=== PATIENT | female | born 1975 | race Caucasian/White ===

== ENCOUNTER 2017-11-17 22:43 | Emergency (ER) | payer BC ==
[~2017-11-17] VITALS: Ht 160 cm; Wt 89.0 kg
[2017-11-17] MEDS ORDERED: ESTARYLLA1 EACH PO ×2 (23:00)
[2017-11-17] MEDS ORDERED: IMITREX100 MG PO ×2 (23:01)
[2017-11-19] MEDS ORDERED: IBU800 MG PO ×2 (13:34)
[2017-11-19] MEDS ORDERED: NORCO 5-325 TA1 EACH PO ×2 (13:34)
== END 2017-11-18 01:40 | disposition home or self-care (01) ==
LOC: ED 22:43
DX: N93.9 Abnormal uterine and vaginal bleeding, unspecified (principal); Z91.018 Allergy to other foods; Z88.8 Allergy status to other drugs, medicaments and biological substances; Z79.899 Other long term (current) drug therapy
CPT/HCPCS: 76830; 76856; 80053; 84703; 85025; 85610; 85730; 99284

== ENCOUNTER 2017-11-19 09:45 | Day surgery (SDC) | payer BC ==
[~2017-11-19] VITALS: Ht 160 cm; Wt 88.9 kg
--- NOTE | ~2017-11-19 | EKG ---
[facility] [address] [facility] [place], [place] [address] Draft EK completed, results pending confirmation PATIENT NAME: KENNA KHAN Electrocardiogram DATE OF : 75 PHYSICIAN: PRELIMINARY REPORT #: [id number] REPORT IS CONFIDENTIAL AND NOT TO BE RELEASED WITHOUT AUTHORIZATION
[~2017-11-19 09:45] MED LIST: ESTARYLLA1 EACH PO; IMITREX100 MG PO
--- NOTE | 2017-11-19 13:09 | NUR ---
11/19/17 1309 Mary Jane Jasmine 1258- PT ARRIVES TO PACU UNRESPONSIVE TO PAINFUL STIMULI. PT IS ABLE TO MAINTAIN HER OWN AIRWAY. OXYGEN SAT 100% ON 6L VIA MASK. 1303- PT OPENS EYES. DOES NOT FOLLOW COMMANDS. EDUCATED PT THAT SHE IS IN THE RECOVERY ROOM. 1305- OXYGEN TITRATED DOWN TO 2L VIA NC. OXYGEN SAT HIGH 90'S TO 100% ON 2L.
[2017-11-19] MEDS ORDERED: IBU800 MG PO ×2 (13:34)
[2017-11-19] MEDS ORDERED: NORCO 5-325 TA1 EACH PO ×2 (13:34)
--- NOTE | 2017-11-20 10:22 | OR ---
[facility] [address] [address] Signed DATE OF OPERATION: 11/19/2017 SURGEON: Ernesto Carroll MD Patient of Dr. Carroll. PREOPERATIVE DIAGNOSIS: Abnormal uterine bleeding. POSTOPERATIVE DIAGNOSIS: Abnormal uterine bleeding. PROCEDURE: Hysteroscopy with biopsy. ANESTHESIA: MAC. ESTIMATED BLOOD LOSS: 20 mL. SPECIMEN: Uterine curettings. DRAINS: None. FINDINGS: Vagina, slight blood. Cervix, thick, closed. No active bleeding. Uterine cavity is normal. Uterus normal in size and shape by palpation. Uterine cavity sounded to 7 cm. The uterine cavity was normal in appearance with small amount of irregular appearing tissue mostly in the fundus. No polyps or fibroids or other masses or lesions seen. DESCRIPTION OF THE PROCEDURE: The patient was brought to the operating room, placed supine position. After adequate MAC was obtained, the patient was placed in dorsal lithotomy position. The patient was prepped and draped in usual sterile fashion. A weighted speculum was placed in the vagina and the anterior lip of the cervix grasped with an Allis clamp. Uterine cavity was sounded to 7 cm. Hysteroscope was then placed in the external os and slowly admitted through the cervix into the uterine cavity using the sterile saline fluid Electronically Signed By: ERNESTO CARROLL MD 11/20/17 1022 PATIENT NAME: KENNA KHAN OPERATIVE REPORT DATE OF : 75 REPORT #: [id number] PHYSICIAN: ERNESTO CARROLL MD PCP: LINAD ESPINOZA MD REPORT IS CONFIDENTIAL AND NOT TO BE RELEASED WITHOUT AUTHORIZATION [facility] [address] [place], [place] [address] Signed distending medium to help dilate the cervix. Upon entering the uterine cavity, the cavity was carefully examined. The MyoSure Lite biopsy probe was then inserted through the hysteroscope and the uterine lining was removed under direct visualization done in 360-degree fashion including the upper portion of the uterus, the lower portion in both cornua. Care was taken to stay in the uterine cavity, but to get a good sample of all areas. This was continued until no irregular tissue was seen and normal cavity with both ostia could be visualized easily. At this point, the hysteroscope was removed. The cervix and the Allis clamp removed. The cervix observed and noted to have good hemostasis. The Aquilex fluid management showed 3300 mL normal saline input with fluid loss of 745 mL, but there was approximately 400 mL under the drape and on the floor, so estimated fluid deficit of 345 mL was used. All instruments were removed from the vagina. The patient tolerated the procedure well, went to recovery room in good condition. The sponge and instrument count correct at the end of the procedure. Uterine curettings were sent to Pathology for identification. MD REMIGIO Luis/TIO /[id number] cc: Linda Espinoza MD Copies: LINDA ESPINOZA MD ~ Electronically Signed By: ERNESTO CARROLL MD 11/20/17 1022 PATIENT NAME: KENNA KHAN OPERATIVE REPORT DATE OF : 75 REPORT #: [id number] PHYSICIAN: ERNESTO CARROLL MD PCP: LINDA ESPINOZA MD REPORT IS CONFIDENTIAL AND NOT TO BE RELEASED WITHOUT AUTHORIZATION
== END 2017-11-19 14:42 | disposition home or self-care (01) ==
LOC: DS 09:45 → OPS 09:45 → DS 13:45 → OPS 13:45
PROVIDERS: General Practice
PROC: 0UB98ZX Excision of Uterus, Via Natural or Artificial Opening Endoscopic, Diagnostic (ICD-10-PCS; principal; 2017-11-19 13:45)
DX: N93.9 Abnormal uterine and vaginal bleeding, unspecified (principal); J45.909 Unspecified asthma, uncomplicated; G43.909 Migraine, unspecified, not intractable, without status migrainosus; E66.9 Obesity, unspecified; Z88.8 Allergy status to other drugs, medicaments and biological substances; Z79.899 Other long term (current) drug therapy; Z68.34 Body mass index [BMI] 34.0-34.9, adult
CPT/HCPCS: 00952; 93005; 93010; J1100; J1885; J2250; J2405; J2704; J3010; J7120

== ENCOUNTER 2020-03-15 06:30 | Day surgery (SDC) | payer OTHER ==
[~2020-03-15] VITALS: Ht 160 cm; Wt 102.0 kg
--- NOTE | ~2020-03-15 | OR ---
[facility] [address] [place] [id number] Draft DATE OF OPERATION: 03/15/2020 SURGEON: Rolando Og DO PREOPERATIVE DIAGNOSES: 1. Abnormal uterine bleeding. 2. Pelvic organ prolapse. POSTOPERATIVE DIAGNOSES: 1. Abnormal uterine bleeding. 2. Pelvic organ prolapse. PROCEDURES PERFORMED: 1. Total laparoscopic hysterectomy. 2. Right fimbriectomy. 3. Cystoscopy. 4. Posterior repair. ASSISTANTS: 1. Ernesto Carroll MD. 2. Mary Montanez DO. ANESTHESIA: General. ESTIMATED BLOOD LOSS: 400 mL. SPECIMEN: Uterus, right fimbria, and cervix. PACKING: Kerlix with Premarin. FINDINGS: Normal uterus and ovaries with left ovary with scarring to the ovarian fossa. Absent left tube and fimbria. Right fimbria present and was excised. On cystoscopy, normal bladder dome and right ureteral efflux noted. No efflux noted from the left ureter consistent with her history of left nephrectomy. Significant bowing of the perineal body and posterior compartment. Excellent apical support. Minimal descensus of the PATIENT NAME: KENNA KHAN OPERATIVE REPORT DATE OF : 75 REPORT #: [id number] PHYSICIAN: ROLANDO OG DO PCP: BOBBI ESPINOZA MD REPORT IS CONFIDENTIAL AND NOT TO BE RELEASED WITHOUT AUTHORIZATION [facility] [address] [place] [id number] Draft anterior compartment. At the end the procedure, excellent perineal and posterior support. Vagina packed with Kerlix with Premarin at the end of the case. COMPLICATIONS: None. INDICATIONS: Ms. Khan is a very pleasant 45-year-old female with abnormal uterine bleeding and pelvic organ prolapse with symptomatic rectocele. She initially presented to the emergency in November of 2019 with acute pain and underwent diagnostic laparoscopy. Followup in the office revealed irregular painful periods and ultrasound demonstrated heterogeneous myometrium suggestive of adenomyosis. She also had significant pelvic organ prolapse with splinting required during stooling. She requests definitive therapy with total laparoscopic hysterectomy, bilateral salpingectomy, and additional pelvic organ prolapse repair as required. Interestingly, the patient recently donated a kidney to her father and is status post left nephrectomy. TECHNIQUE: The patient was taken to the operating room where a time-out was performed to confirm correct patient and correct procedure. General anesthesia was adequately established. The patient was then prepped and draped, prepped and draped in the dorsal lithotomy position with feet in Yellofin stirrups. ICPs were on and running. She received Ancef 2 g preoperatively and heparin per preemie score. A Mayfield catheter was inserted and a weighted speculum was placed in the vagina. The anterior lip of the cervix was grasped with an Allis clamp and the cervix was serially dilated using Hegar dilators. A VCare uterine manipulator was placed without difficulty. The surgeon's gloves were changed and attention was turned to the umbilicus. The base of the umbilicus was infiltrated with 0.25% Marcaine with epinephrine. A vertical infraumbilical incision was made using an 11 blade. The fascia was then grasped with hemostats, elevated and entered sharply with Metzenbaum scissors. Stay sutures were placed on the anterior and posterior edges of the fascial incision. Peritoneum was then entered bluntly and no adhesions palpated. A Willie port was then placed without difficulty and pneumoperitoneum was easily established with low opening pressures noted. Survey of the abdomen and pelvis was performed that demonstrated unchanged findings since prior laparoscopy including some dense scarring of the left ovary to the pelvic sidewall. No significant scarring of the uterus or pelvis otherwise. The patient is status post tubal ligation with an absent left tube and fimbria. The right fimbria remains. A 5 mm assist port was placed in the left lower quadrant under direct visualization without complication. An 8 mm expanding port was then placed in the right lower quadrant under direct visualization without complication. Attention was turned to the right fimbria. It was grasped with a blunt grasper and LigaSure was used to divide the fimbria from the ovary. The fimbria was then removed and sent to pathology for further evaluation. The right utero-ovarian PATIENT NAME: KENNA KHAN OPERATIVE REPORT DATE OF : 75 REPORT #: [id number] PHYSICIAN: ROLANDO GO DO PCP: BOBBI ESPINOZA MD REPORT IS CONFIDENTIAL AND NOT TO BE RELEASED WITHOUT AUTHORIZATION [facility] [address] [place] [id number] Draft ligament was then fulgurated and divided with excellent hemostasis. The left uteroovarian ligament was fulgurated and divided with good hemostasis. The left round ligament was fulgurated and divided and the leaves of the broad ligament were dissected. The anterior leaf of the broad ligament was carried down to the level of the vaginal cuff and the bladder pushed below the vaginal cup. The posterior leaf of the broad ligament was then divided down to the angle of the vaginal cup and the uterosacral ligament. Dissection was carried across the posterior aspect of the vaginal cup. The uterine vessels were then identified, fulgurated and divided. One small pumping vessel was noted and this was easily fulgurated with excellent hemostasis. The process was repeated on the right side with the round ligament fulgurated divided. The leaves of the broad ligament divided and the bladder completely pushed well below the vaginal apex. The right uterine vessels were fulgurated and divided and the uterus appeared blanched. Sonicision was then used to perform colpotomy starting at approximately 5 o'clock posteriorly and proceeding in a clockwise manner. Excellent hemostasis was appreciated during colpotomy. The uterus and cervix were delivered to the vagina and the vagina was packed with a moistened lap inside of a glove to maintain pneumoperitoneum. The pelvis was irrigated and again found to be hemostatic. Colpotomy was repaired using V-Loc suture with the Endostitch device with careful attention to incorporate the uterosacral ligament and to provide optimal apical support and to incorporate the vaginal epithelium with each bite. Excellent apical support and hemostasis was appreciated. The pelvis was irrigated and found to be hemostatic. Cystoscopy was then performed. The Mayfield catheter was removed and a 70 degree cystoscope was placed in the urethral meatus and advanced under direct visualization into the bladder. Normal bladder dome and bilateral ureteral orifices were identified. The right ureteral orifice effluxed. No efflux from the left ureteral orifice, consistent with her history of left nephrectomy. The Mayfield catheter was reinserted. Pneumoperitoneum was reduced and the trocars were removed. Infraumbilical fascia was then reapproximated using 0 Vicryl in a running nonlocked manner. Stay sutures were tied to provide additional support. The skin was then reapproximated using 4-0 Monocryl in a subcuticular stitch with excellent hemostasis and cosmesis. Attention was then turned back to the pelvis. While excellent apical support was appreciated and excellent anterior compartment support was noted, there was still significant bowing of the perineal body and a significant rectocele. It was decided to proceed with simple posterior repair. A Corazon clamp was placed at the apex of the rectocele after performing rectal exam. The perineal body was infiltrated with 0.25% Marcaine with epinephrine. An inverted triangle of perineal skin was excised. Metzenbaum scissors were then used to carefully undermine the vaginal epithelium in the midline of the vagina to the level of the previously placed Corazon clamp. Vaginal epithelium was grasped with Allis clamps and the vaginal epithelium was dissected using blunt and sharp dissection dissecting the rectum away from the vaginal wall. 0 Vicryl was then used to plicate the paravaginal tissue in the midline with a suture of approximately every 1 cm. Rectal exams were performed to ensure no inadvertent stitches were placed into the PATIENT NAME: KENNA KHAN OPERATIVE REPORT DATE OF : 75 REPORT #: [id number] PHYSICIAN: ROLANDO OG DO PCP: BOBBI ESPINOZA MD REPORT IS CONFIDENTIAL AND NOT TO BE RELEASED WITHOUT AUTHORIZATION [facility] [address] [place] [id number] Draft rectum. FloSeal was then applied and pressure was held with good hemostasis. Vaginal epithelium was then trimmed and vaginal epithelium was reapproximated using 2-0 Vicryl in a running locked suture to the level of the hymen. Again, excellent posterior support was noted at this point in the procedure. The perineal body was plicated using 2-0 Vicryl in the standard fashion completing perineorrhaphy. Excellent perineal and posterior compartment support were noted at this point in the procedure. The vagina was then packed with Premarin impregnated Kerlix and the patient was taken to PACU in good and stable condition. Sponge, needle, and instrument count was correct x2 at the end the procedure. Dr. Montanez, and Dr. Carroll assisted through the entire procedure. Rolando Og DO JShadiW/MODL /[id number] Copies: ~ PATIENT NAME: KENNA KHAN OPERATIVE REPORT DATE OF : 75 REPORT #: [id number] PHYSICIAN: ROLANDO OG DO PCP: BOBBI ESPINOZA MD REPORT IS CONFIDENTIAL AND NOT TO BE RELEASED WITHOUT AUTHORIZATION
[~2020-03-15 06:30] MED LIST changes: +IBU800 MG PO; +MOTRIN IB200 MG PO; +NORCO 5-325 TA1 EACH PO; +PERCOCET 5-3251 EACH PO
--- NOTE | 2020-03-15 10:22 | NUR ---
03/15/20 1022 Kerry Escalera 1012- PT ARRIVES TO PACU DROWSY WITH ORAL AIRWAY IN PLACE MASK ON AT 6L. JAW THRUST PERFORMED OFF AND ON. RESP EVEN AND UNLABORED. 1016- NOISES COMING FROM THE AIRWAY NOTED. PT STARTING TO SWALLOW/GAG. AIRWAY REMOVED. BP DECREASED. MEDICATION GIVEN BY LABEL FUSER TENDER. 1020- PT RESPONSIVE TO VERBAL STIMULI THEN FALLS BACK ASLEEP.
--- NOTE | 2020-03-15 11:50 | NUR ---
OXYGEN TURNED OFF AFTER VITALS SIGNS TAKEN. CRACKERS AND ICED WATER GIVEN. PATIENT'S SPOUSE IS AT THE BEDSIDE. CALL LIGHT IS WITHIN REACH.
--- NOTE | 2020-03-15 13:07 | NUR ---
DR BAILON PRESENT TO REMOVE VAGINAL PACKING. PATIENT TOLERATES THIS WELL. ARREOLA BALLOON IS DEFLATED FOR 9 ML FLUID AND ARREOLA IS DC WNL. 200 ML BRIGHT, YELLOW URINE IS NOTED TO ARREOLA OVERNIGHT BAG. PATIENT TOLERATES THIS DC WELL.
--- NOTE | 2020-03-15 13:48 | NUR ---
CONNECTED WITH PT'S SPOUSE CHECO JUST PT WAS TAKEN TO OR. GAVE DIRECTIONS TO CAFETERIA AND ENCOURAGEMENT. WILL FOLLOW NEEDED
--- NOTE | 2020-03-15 14:10 | NUR ---
PATIENT IS RESTING QUIETLY WHEN I ENTER THE ROOM. PATIENT REPORTS HER PAIN 5/10. NO NON-VERBAL SIGNS OF PAIN. HER IS AT THE BEDSIDE. BRIDGETT FERREIRA IS ON WARM. PATIENT REPORTS "I WOULD LIKE MY PAIN TO BE A 4/10." EDUCATION COMPLETE. CALL LIGHT REMAINS WITHIN REACH.
[2020-03-15] MEDS ORDERED: NORCO 5-325 TA1 EACH PO (14:40)
[2020-03-15] MEDS ORDERED: MOTRIN IB200 MG PO (14:40)
--- NOTE | 2020-03-15 15:18 | NUR ---
LE 1430: PATIENT UP TO THE BATHROOM WITH MY STANDBY. PATIENT AMBULATES WELL AND REPORTS "A LITTLE" DIZZINESS. PATIENT VOIDS 100 ML BLOOD TINGED URINE CALEB-PAD AND MESH PANTIES ARE GIVEN. ICE PACKS GIVEN X 2. PATIENT AMBULATES BACK TO HER ROOM AND REQUESTS DISCHARGE HOME. DISCHARGE INSTRUCTIONS ARE GIVEN AND PATIENT AND SPOUSE BOTH VERBALIZE UNDERSTANDING. PATIENT IS GETTING DRESSED IN THE PRESENCE OF HER SPOUSE.
--- NOTE | 2020-03-19 11:47 | PATH ---
[facility] [address] [place], [place] [address] Signed SPECIMEN(S): A UTERUS; CERVIX; RIGHT FIMBRIAE SPECIMEN SOURCE: A. UTERUS; CERVIX; RIGHT FIMBRIAE CLINICAL HISTORY: Abnormal uterine bleeding, adenomyosis, dysmenorrhea. FINAL PATHOLOGIC DIAGNOSIS: Uterus, cervix, and right fimbria, hysterectomy and right partial salpingectomy: - Cervix: Mild acute and chronic inflammation and reactive changes. - Endometrium: Secretory phase endometrium. - Myometrium: Focal adenomyosis. - Serosa: No histopathologic abnormality. - Fimbriated fallopian tube segment: Focal microscopic paratubal cysts. - Negative for malignancy. NAL:cml:C2NR MICROSCOPIC EXAMINATION: Histologic sections of all submitted blocks are examined by light microscopy. These findings, together with the gross examination, support the pathologic diagnosis. GROSS DESCRIPTION: The specimen, labeled "SC, A," and designated on the requisition "uterus, cervix, right fimbria," is received in formalin and consists of a uterus with attached cervix and a detached fimbriated fallopian tube segment. The orientation of the uterus is grossly indeterminate. The uterus with cervix weighs 111 g and measures 9.1 x 6.2 x 4.3 cm. The uterine serosa is wick, smooth, glistening. The ectocervical tissue is wick-white, smooth, and occupies a 2.9 x 2.5 cm area. The external os is oval, patent, and 1.2 cm in diameter. The internal os is patent and the cervical stroma is grossly unremarkable. The triangular endometrial cavity is 4.0 x 3.5 cm. The wick to dark red endometrium is up to 0.4 cm thick and without a discrete mass/lesion. The wick, rubbery myometrium is up to 2.1 cm with a slight trabecular appearance. A discrete mass/lesion is not grossly identified. The fimbriated fallopian tube segment is 1.4 cm long, 0.7 cm in diameter, PATIENT NAME: KENNA KHAN PATHOLOGY DATE OF : 75 REPORT #: [id number] PHYSICIAN: DENNIS SHORT PCP: BOBBI ESPINOZA MD REPORT IS CONFIDENTIAL AND NOT TO BE RELEASED WITHOUT AUTHORIZATION [facility] [address] [place], [place] [address] Signed wick-white, has a patent lumen, and is grossly unremarkable. Reel Stripper sections are submitted as follows: (A1-A2) - cervix (A3-A5) - uterine wall (A6) - fimbriated fallopian tube segment entirely AI (under the direct supervision of a pathologist) The Gross Description was prepared using a voice recognition system. The report was reviewed for accuracy; however, sound-alike word errors, addition and/or deletions may occur. If there is any question about this report, please contact Client Services. PERFORMING LABORATORY: The technical component was performed by [facility], [address] [place] [id number] (Computer Drafter: Sammi Patel MD; CLIA# [id number]). [email or web address], [address] [address] (CLIA# [id number]). Diagnostician: Darline Simmons MD Pathologist Electronically Signed 03/19/2020 Copies: ~ PATIENT NAME: KENNA KHAN PATHOLOGY DATE OF : 75 REPORT #: [id number] PHYSICIAN: DENNIS PATHOLOGY PCP: BOBBI ESPINOZA MD REPORT IS CONFIDENTIAL AND NOT TO BE RELEASED WITHOUT AUTHORIZATION
== END 2020-03-15 14:50 | disposition home or self-care (01) ==
LOC: DS 06:30
PROVIDERS: ATTEND Obstetrics & Gynecology
PROC: 0UT94ZZ Resection of Uterus, Percutaneous Endoscopic Approach (ICD-10-PCS; principal; 2020-03-15 06:45)
PROC: 0UT54ZZ Resection of Right Fallopian Tube, Percutaneous Endoscopic Approach (ICD-10-PCS; 2020-03-15 06:45)
PROC: 0JQC0ZZ Repair Pelvic Region Subcutaneous Tissue and Fascia, Open Approach (ICD-10-PCS; 2020-03-15 06:45)
DX: N80.0 Endometriosis of uterus (principal); N72 Inflammatory disease of cervix uteri; N83.8 Other noninflammatory disorders of ovary, fallopian tube and broad ligament; N81.4 Uterovaginal prolapse, unspecified; J45.20 Mild intermittent asthma, uncomplicated; G43.909 Migraine, unspecified, not intractable, without status migrainosus; Z88.8 Allergy status to other drugs, medicaments and biological substances; Z91.018 Allergy to other foods; Z52.4 Kidney donor
CPT/HCPCS: 00840; 36415; 86850; 86900; 86901; J0330; J0690; J1100; J1170; J1644; J1885; J2001; J2250; J2270; J2405; J2704; J3010; J3475; J7121

== ENCOUNTER 2020-06-14 10:53 | Day surgery (SDC) | payer OTHER ==
[~2020-06-14] VITALS: Ht 160 cm; Wt 120.5 kg
--- NOTE | ~2020-06-14 | OR ---
[address] [place], [place] [address] Draft DATE OF OPERATION: 06/14/2020 SURGEON: Rolando Og DO PREOPERATIVE DIAGNOSES: 1. Acute right lower quadrant pain. 2. Right ovarian cyst. 3. Possible ovarian torsion. POSTOPERATIVE DIAGNOSES: 1. Acute right lower quadrant pain. 2. Right ovarian cyst. 3. Extensive pelvic and abdominal adhesions. PROCEDURES PERFORMED: 1. Laparoscopic right oophorectomy. 2. Extensive lysis of adhesions by Dr. Adrián Huizar, General Surgery. SLATE SPLITTER: Ernesto Carroll MD Intraoperative consult: Adrián Huizar MD, General Surgery. ANESTHESIA: General. ESTIMATED BLOOD LOSS: 30 mL. SPECIMEN: Right ovary. FINDINGS: Normal external genitalia with normal clitoris, urethral meatus, bilateral Oglesby's and Bartholin's. Normal vagina with cervix and uterus surgically absent consistent with surgical history. On laparoscopy, very difficult entry into the abdomen was performed without complication. Right ovary with multiple small ovarian cysts and appearance of recent physiologic cyst rupture. Right colon densely adherent to the right abdominal wall. Multiple dense adhesions of the pelvis and left lower quadrant. Normal upper abdomen. PATIENT NAME: KENNA KHAN OPERATIVE REPORT DATE OF : 75 REPORT #: [id number] PHYSICIAN: ROLANDO OG DO PCP: BOBBI ESPINOZA MD REPORT IS CONFIDENTIAL AND NOT TO BE RELEASED WITHOUT AUTHORIZATION [place] [address] [place], [place] [address] Draft COMPLICATIONS: None. INDICATIONS: Ms. Khan is a pleasant 45-year-old white female, who presented to the emergency department complaining of acute right lower quadrant pain rated 10/10 that was severe despite pain medication. Imaging was suggestive of possible right ovarian torsion. The patient had previously undergone diagnostic laparoscopy for possible left ovarian torsion that demonstrated significant anterior abdominal pelvic adhesions. She then underwent laparoscopic total hysterectomy with bilateral salpingectomy. She returns for this. Decision was made to take the patient to the operating room. Risks, benefits, and alternatives were discussed in detail with the patient. The patient understands and wished to proceed with the procedure. Requests that her right ovary be removed even if normal in appearance. PROCEDURE IN DETAIL: The patient was taken to the operating room where time-out was performed for correct patient and correct procedure. General anesthesia was adequately established. The patient was prepped and draped in dorsal lithotomy position with feet in Yellofin stirrups. ICPs were on and running and Ancef 2 g preoperatively was given. Mayfield catheter was inserted and EEA sizer was placed in the vagina to provide counter traction as needed. Surgeon's gloves were changed and attention was turned to the abdomen. The patient has undergone multiple laparoscopic procedures previously and decision was made to proceed with open entry with Willie port. The periumbilical skin was infiltrated with 0.25% Marcaine with epinephrine and a 10 mm incision was made. Dense scar tissue was noted in the infraumbilical area. This was grasped with hemostats, elevated and entered sharply. Multiple layers and dense adhesions were taken down. Willie port was then placed and pneumoperitoneum was attempted to be established. High opening pressures were noted and camera demonstrates that the fascia was not entered and that just the potential space between scar and fascia was entered. At this point, concern for potential complications should abdominal entry being obtained and displayed, decision was made to proceed with attempt at Taylor point. The left midclavicular line at the bottom of the 10th rib was palpated. An NG tube was placed. A stab incision was made and a Veress needle was placed. Pneumoperitoneum was established. Attention was then turned back to the umbilicus and the fascia was then grasped with hemostats, elevated and entered sharply. Willie port was then able to be placed without difficulty and survey of the abdomen and pelvis was performed. Careful attention was paid to the omentum and underlying viscera with no evidence of complication during abdominal entry. Dense pelvic and abdominal adhesions were noted with the left ovary scarred up above the ovarian fossa and the pelvic brim with adhesions of the colon throughout the pelvis. Attention was turned to the right adnexa. The ovary appeared normal with some small PATIENT NAME: KENNA KHAN OPERATIVE REPORT DATE OF : 75 REPORT #: [id number] PHYSICIAN: ROLANDO OG DO PCP: BOBBI ESPINOZA MD REPORT IS CONFIDENTIAL AND NOT TO BE RELEASED WITHOUT AUTHORIZATION [facility] [address] [place] [id number] Draft follicular cysts. Evidence of recent physiologic cyst rupture. The ascending colon was densely adherent to the anterior abdominal wall. Dr. Huizar, general surgeon, was asked during the case for assistance in lysis of adhesions. Extensive lysis of adhesions was then performed by Dr. Huizar. Please see his portion of the operative note . Attention was then turned to right oophorectomy. The right ovary was removed according to the patient's preference. It was grasped, elevated, and the infundibulopelvic ligament identified. Ureter was noted . The IP ligament was fulgurated and divided with excellent hemostasis. The ovary was then placed in an EndoCatch bag and delivered without complication. Pneumoperitoneum was then reduced and trocars were removed. Trocar sites were repaired using 4-0 Monocryl subcuticular stitch without complication. EEA sizer was removed, and the patient was taken to PACU in stable condition. Sponge, needle, and instrument counts were correct x2 at the end of the procedure. Dr. Carroll was present and participated in all portions of the procedure. Rolando Og DO JDW/MODL /[id number] Copies: ~ PATIENT NAME: KENNA KHAN OPERATIVE REPORT DATE OF : 75 REPORT #: [id number] PHYSICIAN: ROLANDO OG DO PCP: BOBBI ESPINOZA MD REPORT IS CONFIDENTIAL AND NOT TO BE RELEASED WITHOUT AUTHORIZATION
--- OUTSIDE RECORDS SUMMARY | 2020-06-14 10:56 | XMS ---
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 Current PHONE: [phone] Lilia has no Care Guidelines for this patient. E.D. VISIT COUNT (12 MO.) [facility] 1 [facility] 3 [facility] 2 KIYA Gupta TOTAL 7 NOTE: Visits indicate total known visits. ED/UCC VISIT TRACKING (12 MO.) 06/14/2020 10:54 K[facility] Ross TYPE: Emergency COMPLAINT: - R SIDE ABD PAIN 03/20/2020 08:56 [facility] [place] TYPE: Emergency DIAGNOSES: - Constipation - post-op abd pain/nausea - Abdominal Pain - Other acute postprocedural pain - Acute pyelonephritis - Tubulo-interstitial nephritis, not specified as acute or chronic - Nausea 02/20/2020 21:06 [facility] Mery REYES TYPE: Emergency DIAGNOSES: - Noninfective gastroenteritis and colitis, unspecified - Kidney donor - Acute pancreatitis without necrosis or infection, unspecified - COVID-19 - Acute kidney failure, unspecified - V,diff breathing,unable to eat or drink - Shortness of Breath - Nausea with vomiting, unspecified - Dehydration - Extremity Weakness [facility] DIAGNOSES: - Vomiting (Severe) - Vomiting, unspecified - COVID-19 - Dehydration - Diarrhea, unspecified - covid +, dehydrated - Diarrhea (Adult) 02/17/2020 10:21 [facility] [place] [facility] [place] TYPE: Emergency DIAGNOSES: - Other specified abnormal uterine and vaginal bleeding - COVID-19 - Hypoglycemia, unspecified - dehydration 12/08/2019 07:52 [facility] TYPE: Emergency COMPLAINT: - ABD PAIN 08/05/2019 21:08 Leandro REYES TYPE: Emergency COMPLAINT: - RIGHT FOOT PAIN/INJURY DIAGNOSES: 0. Pain in right foot 1. Unspecified sprain of right foot, initial encounter 2. Fall (on) (from) unspecified stairs and steps, initial encounter 3. Allergy status to other drugs, medicaments and biological substances 4. Renal agenesis, unilateral INPATIENT VISIT TRACKING (12 MO.) 02/20/2020 21:06 [facility] Mery REYES TYPE: Medical Surgical DIAGNOSES: - Dehydration - Nausea with vomiting, unspecified - Kidney donor - Acute pancreatitis without necrosis or infection, unspecified - COVID-19 - Noninfective gastroenteritis and colitis, unspecified - Acute kidney failure, unspecified [email or web address]
--- NOTE | 2020-06-14 18:27 | NUR ---
06/14/201826 Pamela Mahmood 182 PATIENT ARRIVES TO PACU SLEEPING, OPENS EYES WITH VERBAL STIMULI, THEN BACK TO SLEEP. RESP EVEN AND UNLABORED, SNORES AT TIMES. MASK AT 6 LITERS.
--- NOTE | 2020-06-14 19:10 | NUR ---
PT ARRIVED TO THE FLOOR. REPORT RECEIVED FROM ESPERANZA OLIVO. CPOX ON. NO NEEDS AT THIS TIME. CALL LIGHT IN REACH.
--- NOTE | 2020-06-14 20:05 | NUR ---
PT PUT ON SCDS PER RN, ICE WATER AND ICE CHIPS PROVIDED, WARM BLANKET PROVIDED, NO FURTHER NEEDS AT THIS TIME
--- NOTE | 2020-06-14 20:39 | NUR ---
SCHEDULED MEDS PROVIDED. ABD PAIN 10/20/ PRN PAIN MED PROVIDED. GCS 15, A&O X4. SPOUSE IN ROOM. LUNGS CLEAR, HEART TONES REGULAR. ABD SOFT, TENDER, OBESE, MILDLY DISTENDED. INCISIONS X5 CDI. CPOX 96% ON 2L NC. CMS INTACT. IV WNL, CDI, FLUSHED WELL. IV FLUIDS INFUSING PER ORDER. ARREOLA WNL. VS AND I&O COMPLETED. NO OTHER NEEDS AT THIS TIME. CALL LIGHT IN REACH.
--- NOTE | 2020-06-14 21:06 | NUR ---
COMPLETED INTAKE HISTORY WITH PT. IS IN ROOM AT THIS TIME. THEY DENY NEEDS AND CALL LIGHT IS CLOSE.
--- NOTE | 2020-06-14 21:30 | NUR ---
IN TO GET POST OP VITALS
--- NOTE | 2020-06-14 22:01 | NUR ---
SCHEDULED MED PROVIDED, PT PAIN 09/20. IV WNL. ARREOLA WNL. ICE WATER PROVIDED. NO OTHER NEEDS. CALL LIGHT IN REACH.
--- NOTE | 2020-06-14 22:30 | NUR ---
IN TO GET LAST SET OF POST OP VITALS, NO FURTHER NEEDS AT THIS TIME
--- NOTE | 2020-06-14 23:05 | NUR ---
VERBAL REPORT RECEIVEDF [facility] PALLAVI MCGILL. THIS RN TO RESUME CARE FOR pt. pt RESTING QUIETLY IN BED WITH EYES CLOSED, RR EVEN AND UNLABORED. NO DISTRESS NOTED. 1LNC IN PLACE, CPOX NOTED. O2 SAT AND HR WNL. NO DISTRESS NOTED, CALL LIGHT IN REACH.
--- NOTE | 2020-06-15 02:08 | NUR ---
PRN PAIN MEDICATION GIVEN FOR INCREASED ABD PAIN, SEE EMAR. ASSESSMENT COMPLETE. LAP SITES WNL, COVERED WITH BANDAIDS, SCANT TO SMALL AMOUNT SEROSANGUINEOUS DRAINAGE NOTED. CPOX IN PLACE, VSS, 1LNC REMAINS IN PLACE. IV FLUIDS INFUSING PER MD ORDERS, SITE WNL. FLUSHES EASILY. ARREOLA EMPTIED, NO FURTHER NEEDS, CALL LIGHT IN REACH. IN ROOM.
--- NOTE | 2020-06-15 06:10 | NUR ---
SCHEDULED MOTRIN GIVEN FOR 5/10 PAIN IN INCISION, SEE EMAR. pt AWAKE AND RESTING IN BED, NEW BAG IV FLUIDS HUNG AND INFUSING PER MD ORDERS, IV SITE WNL. ARREOLA CATHETER REMOVED AT THIS TIME PER MD ORDER, pt DANGLED BLE, TOLERATED WELL. NO FURTHER NEEDS, CALL LIGHT IN REACH.
--- NOTE | 2020-06-15 06:54 | NUR ---
PRN PAIN MEDICATION GIVEN FOR 5/10 ABD PAIN (SEE EMAR) PER pt REQUEST. NO FURTHER NEEDS, CALL LIGHT IN REACH.
--- NOTE | 2020-06-15 07:00 | NUR ---
in to see pt for bedside report. Lap sites band-aids are clean, dry and intact. asleep on couch. Call light in reach. No other needs at this time.
--- NOTE | 2020-06-15 09:00 | NUR ---
ELBA REMOVED EARLY THIS AM BY NOC SHIFT RN. PT UP TO BATHROOM TO VOID. TOLERATED AMBULATION WELL, DID REPORT LEGS FELT HEAVY, BUT SAYS SHE FEELS STEADY. 1 LARGE UNMEASURED VOID OF LIGHT YELLOW URINE. MEDICATIONS GIVEN. ASSESSMENT COMPLETED. VSS. PT STATES PAIN IS MINIMAL AT REST AND MODERATE W/ AMBULATION. BACK TO BED. SCD'S ON, CALL LIGHT IN REACH.
--- NOTE | 2020-06-15 10:15 | NUR ---
DR. BAILON IN TO SEE PT. DC INSTRUCTIONS CAREFULLY REVIEWED W/ . VSS. IV REMOVED FROM LAC. PT DENIES PAIN AT REST. REFUSING FURTHER PAIN MEDICATION. BACK TO BED TO AWAIT COMPLETION OF PAPERWORK. CALL LIGHT IN REACH.
[2020-06-15] MEDS ORDERED: MIRALAX119 GM PO (10:30)
--- NOTE | 2020-06-15 11:00 | NUR ---
PT DC PAPERWORK REVIEWED AND SIGNED W/ RN PRESENT. PT DRESSED. VSS. WHEELED TO CAR. PT IS WITHOUT COMPLAINT AND IS REFUSING FURTHER NARCOTICS, STATES SHE WILL NOT UTILIZE HYDROCODONE PRESCRIPTION. DR. BAILON TO FAX PRESCRIPTIONS AND PT INSTRUCTED TO NOTIFY PHYSICIAN FOR SEVERE PAIN THAT IS NOT MANAGED BY IBUPROFEN. PT VERBALIZED UNDERSTANDING AND HAS NO OTHER QUESTIONS.
[2020-06-15] MEDS ORDERED: IMITREX100 MG PO (11:16)
--- NOTE | 2020-06-15 11:45 | NUR ---
In to complete CM assessment. Pt is dressed and ready to get into wc. 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 Has been up walking in the room. Denies needs to go home and spouse will assist her. Pt ready for dc.
--- NOTE | 2020-06-17 13:00 | OR ---
[facility] [address], [place] [address] Signed DATE OF OPERATION: 06/14/2020 SURGEON: Magda Marina MD PREOPERATIVE DIAGNOSES: 1. Persistent right lower abdominal and pelvic pain with presumed 5 cm ovarian cyst (recurrent). 2. Bilateral pelvic large bowel adhesions to pelvis and pelvic sidewall. POSTOPERATIVE DIAGNOSES: 1. Persistent right lower abdominal and pelvic pain with presumed 5 cm ovarian cyst (recurrent). 2. Bilateral pelvic large bowel adhesions to pelvis and pelvic sidewall; no evidence of terminal ileitis or evidence of Meckel's diverticulum. PROCEDURE: 1. Intraoperative consultation upon request of Dr. Rolando Og. 2. Laparoscopic lysis of adhesions of right colon and pelvic structures, small-bowel evaluation. ANESTHESIA: General endotracheal, Ba Gandhi CRNA INDICATIONS: This 45-year-old white woman has had chronic recurrent right lower abdominal and pelvic pain and has been taken to the operating room by Dr. Rolando Og assisted by Dr. Carroll for a presumed right 5 cm ovarian cyst with uncertainty as to regards viability of the ovary. Intended plan was for right ovarian resection with cyst. The patient has multiple prior surgical interventions in the past and entry into the abdomen was somewhat prolonged and complicated on the basis of those adhesions, but was accomplished well by Dr. Carroll. The right ovary was identified with some cystic changes without signs of ischemia per se. No signs of torsion. There were numerous adhesions of cecum to the right pelvic sidewall related to prior operative interventions in the past. Assistance was requested and lysis of adhesions and further evaluation from a gastrointestinal standpoint. On that basis, I scrubbed in and assisted in that way. FINDINGS: Dense adhesions of the cecum to the pelvis related to prior manipulation of the colon were undertaken. I saw no evidence of retained appendix. The terminal ileum was normal and small bowel was run proximally, showing no sign of Meckel's diverticulum. The ovary Electronically Signed By: MAGDA MARINA MD 06/17/20 1300 PATIENT NAME: KENNA KHAN OPERATIVE REPORT DATE OF : 75 REPORT #: [id number] PHYSICIAN: MAGDA MARINA MD PCP: BOBBI ESPINOZA MD REPORT IS CONFIDENTIAL AND NOT TO BE RELEASED WITHOUT AUTHORIZATION [facility] [address], [place] [address] Signed itself did not appear ischemic, but did have small cystic changes associated with it and was resected by Dr. Carroll and Dr. Rolando Og. Lysis of adhesions for better evaluation of the cecum and colon and ileum was accomplished without complication. Filmy adhesions with minimal oozing were secured with hemoclips. DESCRIPTION OF PROCEDURE: The patient was in a mild Trendelenburg position with stirrups and intraoperative assessment of the pelvis was undertaken. An additional 5 mm left lower quadrant port was placed allowing for two-hand manipulation. The camera remained at the umbilicus and another operative port was in the left mid abdomen. With two-hand manipulation, lysis of adhesions with Endo Jennifer was undertaken without the use of electrocautery, freeing the cecum from the pelvic sidewall and the area of the pelvis more fully with blunt dissection as well as careful division of adhesions. This helped reveal the bulk of the cecum showing no sign of persistent appendix or appendiceal stump nor sign of fluid collection, peritoneal cyst, or other abnormality that might account for the ultrasonographic findings. The small bowel was subsequently run from the ileocecal junction more proximally identifying the antimesenteric fat pad of Trieve; the terminal ileum had no evidience of stricture and no evidence of terminal ileitis. More proximal examination showed no sign of Meckel's diverticulum. Irrigation was undertaken as necessary and additional maneuvers were undertaken by Dr. Og and Dr. Carroll including excision of the right ovary and its cystic changes. I saw no evidence of cecal, sigmoidal or small-bowel lesion to account for her symptoms at this point. The case was continued by Dr. Og and Glen after that point. MD MAGGIE Mustafa/SHAHABL /[id number] cc: DO Ernesto Tran MD Copies: ROLANDO OG DO Electronically Signed By: MAGDA MARINA MD 06/17/20 1300 PATIENT NAME: KENNA KHAN OPERATIVE REPORT DATE OF : 75 REPORT #: [id number] PHYSICIAN: MAGDA MARINA MD PCP: BOBBI ESPINOZA MD REPORT IS CONFIDENTIAL AND NOT TO BE RELEASED WITHOUT AUTHORIZATION [address] [address] Signed ERNESTO CARROLL MD ~ Electronically Signed By: MAGDA MARINA MD 06/17/20 1300 PATIENT NAME: KENNA KHAN OPERATIVE REPORT DATE OF : 75 REPORT #: [id number] PHYSICIAN: MAGDA MARINA MD PCP: BOBBI ESPINOZA MD REPORT IS CONFIDENTIAL AND NOT TO BE RELEASED WITHOUT AUTHORIZATION
--- NOTE | 2020-07-02 16:52 | PATH ---
[facility] [address] [place], [place] [address] Signed THIS IS AN AMENDED REPORT SPECIMEN(S): A RIGHT OVARY SPECIMEN SOURCE: A. RIGHT OVARY CLINICAL HISTORY: Chronic pelvic pain; right oophorectomy. REASON FOR AMENDMENT: This amended report is issued to correct the referring provider delivery location. Originally reported as [facility]/Pathology; amended to [facility]. The Pathologic Diagnosis remains unchanged. (07/02/20) FINAL PATHOLOGIC DIAGNOSIS: Ovary, right, oophorectomy: - Ovary with hemorrhagic corpus luteum cysts and cystic follicles (2.3 cm in greatest dimension). NAL:cml:C2NR MICROSCOPIC EXAMINATION: Histologic sections of all submitted blocks are examined by light microscopy. These findings, together with the gross examination, support the pathologic diagnosis. GROSS DESCRIPTION: The specimen, labeled "SC, right ovary," is received in formalin and consists of ovary that measures 5.3 x 3.5 x 2.7 cm. Serosal surface is pink-wick, smooth and fluctuating. Sectioning through the ovary reveals several cysts that range in size from 0.5-2.3 cm in greatest dimension. The cysts are filled with a clear and hemorrhagic fluid. [employer]ant sections are submitted in cassettes (A1-A2). JS (under the direct supervision of a pathologist) The Gross Description was prepared using a voice recognition system. The report was reviewed for accuracy; however, sound-alike word errors, addition and/or deletions may occur. If there is any question about this report, please contact Client Services. PATIENT NAME: KENNA KHAN PATHOLOGY DATE OF : 75 REPORT #: [id number] PHYSICIAN: DENNIS SHORT PCP: BOBBI ESPINOZA MD REPORT IS CONFIDENTIAL AND NOT TO BE RELEASED WITHOUT AUTHORIZATION [facility] [address] [address] Signed PERFORMING LABORATORY: The technical component [place] [address] (Speech Language Pathologist: Sammi Patel MD; CLIA# [id number]).Professional interpretation was performed by [facility], [address] [address] (CLIA# [id number]). Diagnostician: Darline Simmons MD Pathologist Electronically Signed 07/02/2020 Copies: ~ PATIENT NAME: KENNA KHAN PATHOLOGY DATE OF : 75 REPORT #: [id number] PHYSICIAN: DENNIS SHORT PCP: BOBBI ESPINOZA MD REPORT IS CONFIDENTIAL AND NOT TO BE RELEASED WITHOUT AUTHORIZATION
== END 2020-06-15 11:00 | disposition home or self-care (01) ==
LOC: ED 10:53 → DS 15:31 → MS 20:04 → DS 06-15 11:00
PROVIDERS: ATTEND Obstetrics & Gynecology
PROC: 0UB04ZZ Excision of Right Ovary, Percutaneous Endoscopic Approach (ICD-10-PCS; principal; 2020-06-14 15:28)
DX: N83.201 Unspecified ovarian cyst, right side (principal); R10.31 Right lower quadrant pain; R10.2 Pelvic and perineal pain; N73.6 Female pelvic peritoneal adhesions (postinfective); Z88.8 Allergy status to other drugs, medicaments and biological substances; Z91.018 Allergy to other foods; Z20.822 Contact with and (suspected) exposure to COVID-19
CPT/HCPCS: 00840; 36415; 74176; 76830; 76856; 80048; 80053; 81001; 85025; 85027; 96374; 96375; 96376; 99285-25; C9803; J0131; J0330; J1100; J1170; J1644; J1650; J1885; J2001; J2270; J2405; J2704; J2765; J3010; J7121; U0003

== ENCOUNTER 2020-06-22 16:22 | Observation (INO) | payer OTHER ==
[~2020-06-22] VITALS: Ht 160 cm; Wt 112.4 kg
--- NOTE | ~2020-06-22 | HP ---
[facility] [address], [place] [address] Draft ADMISSION DATE: 06/22/2020 CHIEF COMPLAINT: Postoperative pain. HISTORY OF PRESENT ILLNESS: Ms. Khan is a very pleasant 45-year-old white female, who presented to the office postop #7 status post laparoscopic right oophorectomy and extensive lysis of adhesions for acute onset of abdominal pain with concern for possible ovarian torsion. Intraoperative findings demonstrated no torsion, but she did have significant abdominal and pelvic adhesions. Dr. Huizar presented and helped with lysis of bowel adhesions. Surgery was also notable for significant periumbilical scarring from prior multiple laparoscopic surgery and difficult abdominal entry with significant dissection of scar tissue superficial to the periumbilical fascia. The patient reports that she was doing well for the 1st several days postoperatively. Three days ago, she woke with significant pressure and increasing mass in the infraumbilical region. This is worsened over the past 2 days and now the patient reports that her pain is between 8 to 10/10. She is concerned for possible hematoma and presented to the office for evaluation. She reports significant bruising, but denies fevers, chills, lightheadedness or bleeding or oozing from her incision. Normal bowel movements. No deep abdominal pain shoulder pain, shortness of breath. CURRENT MEDICATIONS: Ibuprofen 800 mg t.i.d. p.r.n. MEDICAL HISTORY: 1. Mild intermittent asthma. 2. Migraine headaches. ALLERGIES: 1. Phenergan, vomiting. 2. Cherries, rash. SURGICAL HISTORY: 1. Appendectomy, 1995. 2. Cholecystectomy, 2001. 3. Low transverse delivery, 2002. 4. Laparoscopic tubal ligation, 2003. 5. Left nephrectomy donor, March of 2019. 6. Diagnostic laparoscopy, 2019. 7. Total laparoscopic hysterectomy with bilateral salpingectomy in March 2020, with PATIENT NAME: KENNA KHAN HISTORY AND PHYSICAL DATE OF : 75 REPORT #: [id number] PHYSICIAN: ROLANDO OG DO PCP: BOBBI ESPINOZA MD REPORT IS CONFIDENTIAL AND NOT TO BE RELEASED WITHOUT AUTHORIZATION [facility] [address] [place], [place] [address] Draft repair of rectocele. 8. Laparoscopic right oophorectomy and complex lysis of adhesions in May of 2020. 9. Hospitalizations notable for COVID in February of 2020. FAMILY HISTORY: Significant for maternal grandmother with ovarian cancer. SOCIAL HISTORY: She is a nonsmoker. Denies alcohol use or drug use. 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 REVIEW OF SYSTEMS: A complete review of systems was performed, negative except per HPI. PHYSICAL EXAMINATION: VITAL SIGNS: Temperature 98.3, pulse 61, respiratory rate 18, blood pressure 148/80, oxygen saturation 96 on room air. GENERAL: The patient is alert, cooperative, oriented. Holding abdomen and in some acute pain. is here with the patient and very supportive. SKIN: [place], warm, dry, no rash to exposed skin. Significant ecchymosis of the abdomen from the umbilicus to the pubic symphysis consistent with postoperative state. HEENT: Normocephalic, atraumatic. NECK: Supple. Trachea midline. No thyromegaly. No lymphadenopathy. CHEST: Normal shape and expansion. No apparent dyspnea. HEART: Regular rate and rhythm. No murmur. RESPIRATORY: Lungs clear to auscultation bilaterally. No wheezes, rales, or rhonchi. ABDOMEN: Soft with no rebound or peritoneal signs. She does have a large warm firm mass approximately 16 cm wide by 12 cm height from the umbilicus to just above the pubic symphysis. This is exquisitely tender to touch. Again, significant ecchymosis. Incisions are well healed. No signs of hernia. BACK: Normal range of motion. SPINE: No CVA tenderness. GENITALIA: Deferred. EXTREMITIES: No edema. LABORATORY DATA: WBCs 9.7, hemoglobin 12.9, platelets 222. Fibrinogen 592. Sodium 138, potassium 4.1, chloride 105, carbon dioxide 28. BUN 14, creatinine 1.08, consistent with history of nephrectomy. Glucose 86, calcium 8.8, AST 13, ALT 13. Ferritin is pending. COVID negative. IMAGING: PATIENT NAME: KENNA KHAN HISTORY AND PHYSICAL DATE OF : 75 REPORT #: [id number] PHYSICIAN: ROLANDO OG DO PCP: BOBBI ESPINOZA MD REPORT IS CONFIDENTIAL AND NOT TO BE RELEASED WITHOUT AUTHORIZATION [facility] [address] [place] [id number] abdomen and pelvis with contrast was performed and findings were reviewed with Dr. Anupama Francisco. Pertinent positive findings. No acute processes intra-abdominally. In the anterior abdominal fat, there is an irregular fluid collection 8.4 x 5.5 x 5.5 cm near the density of water consistent with postsurgical seroma. Lymphocele or old hematoma with no active bleeding or extravasation that is inferior to periumbilical scarring, which was present before surgery. ASSESSMENT: 1. Postoperative seroma. 2. Postoperative pain. PLAN: We will admit the patient for pain control and to monitor for improvement of her symptoms. I had initially been very suspicious of hematoma and we had discussed the likelihood of surgical evacuation of hematoma. Given this is a seroma with no signs of infection, it is reasonable to monitor for improvement of symptoms while providing control of postoperative pain. We will monitor the patient's progress and may consider some sort of percutaneous drainage or surgical consultation with on-call general surgeon. We will repeat CBC in the morning. Multimodal pain control. DVT prophylaxis. Antibiotics not indicated at this time. Reviewed findings with the patient and her , who understand and agree with this course of management. All questions were answered to the best of my ability and the patient's apparent satisfaction. Rolando Og DO JDW/SHAHABL /[id number] Copies: ~ PATIENT NAME: KENNA KHAN HISTORY AND PHYSICAL DATE OF : 75 REPORT #: [id number] PHYSICIAN: ROLANDO OG DO PCP: BOBBI ESPINOZA MD REPORT IS CONFIDENTIAL AND NOT TO BE RELEASED WITHOUT AUTHORIZATION
[~2020-06-22 16:22] MED LIST changes: +MIRALAX119 GM PO
--- NOTE | 2020-06-22 16:37 | NUR ---
RAPID SWAB COLLECTED
--- NOTE | 2020-06-22 17:00 | NUR ---
REPORT RECEIVED FROM CHARGE NURSE AND PT. CARE RESUMED. PT. HAS 8/10 ABDOMINAL PAIN. IV STARTED BY PALLAVI PASCUAL, LABS DRAWN AND IVF STARTED. ABDOMEN TIGHT AND DISTENDED. LUNGS CLEAR. PT. ALERT AND ORIENTED AND PARTNER IN THE ROOM.
--- NOTE | 2020-06-22 18:14 | NUR ---
DR. BAILON TO FLOOR. PATIENT RENAL LABS WNL AND PATIENT TO CT FOR ABD/PELVIS WITH CONTRAST.
--- NOTE | 2020-06-22 18:26 | NUR ---
PATIENT BACK FROM CT. IVF RESUMED, WARM BLANKETS PROVIDED.
--- NOTE | 2020-06-22 19:10 | NUR ---
SHIFT REPORT RECEIVED FROM ALBINO OLIVO. PT RESTING IN BED, FAMILY IN ROOM. NO NEEDS AT THIS TIME.
--- NOTE | 2020-06-22 21:21 | NUR ---
ASSESSMENT, VS AND I&O COMPLETED. GCS 15, A&O X4. PT PAIN IN ABD 8/10, PRN PAIN MED PROVIDED. LUNGS CLEAR, HEART TONES REGULAR. ABD FIRM, TENDER, SEVERELY DISTENDED, BOWEL TONES ACTIVE, SKIN APPEARS YELLOW IN COLORATION IN THE LOWER ABD. OLD SURGICAL SITES WNL. PT REPORTS NUMBNESS IN THE ABD AREA THAT IS DISTENDED. CMS INTACT IN EXTREMITIES. IV WNL, CDI, FLUSHED WELL. NO OTHER NEEDS AT THIS TIME. CALL LIGHT IN REACH.
--- NOTE | 2020-06-23 00:28 | NUR ---
CALL LIGHT ANSWERED, pt UP SBA TO BATHROOM TO VOID AND BACK TO BED. TOLERATED WELL, REPORTING INCREASED PAIN, PRN PAIN MEDICATION GIVEN FOR 5/10 ABD PAIN (SEE EMAR). pt INTERACTIVE WITH STAFF, DENIES FURTHER NEEDS. CALL LIGHT IN REACH. PRIMARY RN ARTEM PALOMO.
--- NOTE | 2020-06-23 02:32 | NUR ---
ASSESSMENT, VS AND I&O COMPLETED. PT ABD PAIN 10/20, PRN PAIN MED PROVIDED. ABD APPEARS UNCHANGED, REDNESS, DISCOLORATION AND SWELLING PRESENT. IV WNL. CMS INTACT EXCEPT PT REPORTS A NUMB AREA ACROSS LOWER ABD. ICE WATER AND CRACKERS PROVIDED. NO OTHER NEEDS AT THIS TIME. CALL LIGHT IN REACH.
--- NOTE | 2020-06-23 06:00 | NUR ---
IN TO GET VITALS, LOW BP NOTED AND RN INFORMED RIGHT AWAY, PT C/O OF PAIN, RN INFORMED, NO FURTHER NEEDS AT THIS
--- NOTE | 2020-06-23 06:42 | NUR ---
pt reports 6/10 abd pain, prn pain med provided. not other needs at this time. call light in reach.
--- NOTE | 2020-06-23 09:10 | NUR ---
REPORT RECEIVED FROM NIGHT RN AND PT. CARE RESUMED. PT. STATES SHE DID NOT SLEEP WELL LAST NIGHT DUE TO PAIN. DENIES NAUSEA AND STATES HER PAIN IS 6/10 BUT TOLERABLE. PT. DID NOT EAT BREAKFAST. LUNGS CLEAR. ABDOMEN BELOW UMBILICUS IS FIRM AND DISTENDED. PT. STATES IT IS TENDER ALLOVER WITH PALP. PT. REPORTS BEING SLIGHTLY DIZZY WITH AMBULATION. INSTRUCTED SIT ON THE EDGE OF BED UNTIL SHE IS NOT DIZZY BEFORE AMBULATING. IVF RUNNING AT 15ML/HR. IV SITE WNL AND FLUSHES WELL. PT. LEFT RESTING IN BED WITH CALL LIGHT IN REACH.
--- NOTE | 2020-06-23 09:57 | NUR ---
PT. REPORTS INCREASED PAIN AFTER AMBULATING TO THE BATHROOM. RATES ABD. PAIN SHARP 7/10 PAIN. ADMIN. PRN MOTRIN AND PERCOCET. PT. DENIES FURTHER NEED.
--- NOTE | 2020-06-23 10:33 | NUR ---
PT. REPORTS FEELING NAUSEOUS. ADMIN. IVP ZOFRAN. WILL CONTINUE TO MONITOR.
--- NOTE | 2020-06-23 12:22 | NUR ---
PT WAS ABLE TO EAT HER SANDWICH FOR LUNCH AND STATES IT HELPED WITH HER NAUSEA. REPORTS ABDOMINAL PAIN THAT IS TOLERABLE AND BETTER WHEN RESTING. PT. GIVEN AN ICE PACK. LUNGS CLEAR. IV SITE WNL. ABDOMINAL DISTENSION AND FIRMNESS APPEARS UNCHANGED. BOWEL TONES ACTIVE. PT. WEARING SCD'S. PT. LEFT RESTING IN BED WITH CALL LIGHT IN REACH.
--- NOTE | 2020-06-23 13:15 | NUR ---
PT. STATES HER ABDOMINAL PAIN IS TOLERABLE AT THE MOMENT WITH REST AND BROUGHT A FRESH ICE PACK. SHE DENIES NAUSEA. PT. STATES SHE WOULD LIKE TO WAIT UNTIL AT LEAST 1600 BEFORE SHE TAKES ANY PAIN MEDICATION. PT. LEFT RESTING IN BED WITH CALL LIGHT IN REACH.
--- NOTE | 2020-06-23 16:43 | NUR ---
PATIENT'S ABDOMEN APPEARS MORE DISTENDED AND FIRM BELOW UMBILICUS. PT. ALSO REPORTS FEELING MORE DISTENDED. ABD PAIN IS SHARP AND 7/10 AND PRN DILAUDID ADMIN. LUNGS CLEAR. IVF RUNNING AT 15ML/HR. IV SITE FLUSHES WELL AND WNL. SCD'S IN PLACE. PT. IS TOLERATING FOOD WELL. IS IN THE ROOM. PT. LEFT RESTING IN BED WITH CALL LIGHT IN REACH.
--- NOTE | 2020-06-23 19:45 | NUR ---
REPORT RECEIVED FROM DAY SHIFT RN. PT LYING IN BED RESTING WITH EYES CLOSED, NAD. DROWSY BUT OPENS EYES WHEN SPOKEN TO. WHITE BOARD UPDATED. CALL LIGHT IN REACH.
--- NOTE | 2020-06-23 21:00 | NUR ---
EVENING ASSESSMENT COMPLETE. PRN ADMINISTERED FOR ABD PAIN. PT DENIES NAUSEA. ABD NEAR UMBILICUS FIRM AND TENDER. BOWEL TONES ACTIVE. PT REPORTS FLATUS BUT NO BM TODAY. ICE PACK TO ABD FOR COMFORT. EAR PLUGS AND EYE MASK PROVIDED PT REPORTS NOT SLEEPING WELL DUE TO BEING NEXT TO CCU DOOR. WARM BLANKETS AND FRESH WATER PROVIDED. IVF INFUSING. SCD'S IN PLACE. PT DENIES QUESTIONS OR CONCERNS AT THIS TIME. CALL LIGHT IN REACH.
--- NOTE | 2020-06-23 23:57 | NUR ---
PT RESTING IN BED ON LEFT SIDE WITH EYES CLOSED, NAD. RESPIRATIONS EVEN AND UNLABORED. IVF INFUSING. SCD'S IN PLACE. CALL LIGHT IN REACH.
--- NOTE | 2020-06-24 03:51 | NUR ---
PT RESTING IN BED WITH EYES CLOSED. RESPIRATIONS EVEN AND UNLABORED. IN ROOM. CALL LIGHT IN REACH.
--- NOTE | 2020-06-24 06:18 | NUR ---
VS AND I&O COMPLETE. PT UP TO BR WITH SBA TO VOID. GAIT STEADY. BACK TO BED, CRISTOFER WELL. PT REPORTS MIGRAINE PAIN AND AT HOMES TAKES IMITREX. PT DOES NOT WISH FOR ME TO CALL DR. BAILON AT THIS TIME. PRN DILAUDID ADMINISTERED PER EMAR FOR ABD/MIGRAINE PAIN. ICE PACK PROVIDED. NO FURTHER NEEDS AT THIS TIME. CALL LIGHT IN REACH.
--- NOTE | 2020-06-24 10:55 | NUR ---
PT SALINE LOCKED FOR SHOWER, IV WRAPPED WITH ZIPLICK BAG. PT INDEPENDENT FOR SHOWER.
--- NOTE | 2020-06-24 12:04 | NUR ---
BECCA DRESSING APPLIED TO THE RIGHT HIP OVER BLISTER. GUAZE REMOVED HAD SERISANGUINOUS AND THORNE PURULENT DRAINAGE. PT. TOLERATED WELL. DR. BRYSON AND DR. MENDIETA IN TO SEE THE PATIENT.
--- NOTE | 2020-06-24 12:08 | NUR ---
REPORT RECIEVED FROM NIGHT RN AND PT. CARE RESUMED. PT. WAS ASLEEP WITH IN THE ROOM. PT. DOES NOT WANT BREAKFAST AND STATES SHE IS NAUSEOUS AND HAS A MIGRAINE. ADMIN. ZOFRAN. PT. STATES SHE USES IMITREX AT HOME FOR MIGRAINES. SHE ASKED THAT I NOT CALL DR. BAILON ABOUT IT AND WILL MENTION IT HERSELF WHEN HE SEES HER. ABDOMEN IS STILL DISTENDED, TENDER AND FIRM. BOWEL TONES ACTIVE. LUNGS CLEAR. IV SITE WNL. PT. LEFT RESTING IN BED AND WE DISCUSSED HAVING A SHOWER THIS MORNING.
--- NOTE | 2020-06-24 17:05 | NUR ---
PT. REFUSED REVIEWING DISCHARGE INSTRUCTIONS AND STATED SHE HAD NO QUESTIONS. PT. LEFT WITH ALL BELONGINGS IN WHEELCHAIR WITH HER . PT. STATED HER PAIN WAS 7/10, BUT DID NOT WANT PAIN MED.
== END 2020-06-24 17:05 | disposition home or self-care (01) ==
LOC: MS 16:22
PROVIDERS: ADMIT Obstetrics & Gynecology; ATTEND Obstetrics & Gynecology
DX: L76.34 Postprocedural seroma of skin and subcutaneous tissue following other procedure (principal); G89.18 Other acute postprocedural pain; Z20.822 Contact with and (suspected) exposure to COVID-19; J45.20 Mild intermittent asthma, uncomplicated; G43.909 Migraine, unspecified, not intractable, without status migrainosus; Z88.8 Allergy status to other drugs, medicaments and biological substances
CPT/HCPCS: 36415; 74177; 76705; 80053; 82728; 85025; 85384; 96372; 96374; 96375; 96376; C9803; G0378; G0379; J1170; J1650; J2405; J7121; Q9967; U0003